=== PATIENT | male | born 1975 | race Caucasian/White ===

== ENCOUNTER → 2017-04-17 | Outpatient (CLI) | payer BC ==
[~2017-04-17] MED LIST: FLOMAX 0.4MG C0.4 MG PO; HYDROCODONE-APA1 TA1 PO; MEDROL 4MG. DOSE4 MG PO; PHENAZOPYRIDIN200 M1 PO; SEPTRA DS 800 M1 TAB PO; SMZ-TMP 800 MG-1 TAB PO; ZOFRAN ODT4 MG PO
--- NOTE | 2017-04-17 15:43 | RADIOLOGY REPORT PS360 ---
CT ABD PELVIS W/O CONTRAST CLINICAL INDICATION: RT FLANK PAIN ORDERING PHYSICIAN: Hernando Ac MD PATIENT AGE: 41 years COMPARISON: 08/08/2015. TECHNIQUE: Axial images obtained without contrast. Sagittal and coronal reformatted images also generated and reviewed FINDINGS: Lung bases are clear. The liver, gallbladder, pancreas, spleen, and adrenal glands are unremarkable. There is a 7 x 5 millimeter stone in the right renal pelvis near but not struck in the ureteropelvic junction. The right ureter somewhat dilated throughout its course but not quite as prominent as on 08/08/2015 there is some haziness of the fat in the right perinephric region around the renal pelvis and proximal ureter. Urinary tract infection, recent or chronic obstruction is a consideration. The left kidney has an unremarkable appearance. Unremarkable appendix. No evidence of diverticulitis or other focal inflammatory change. Prostate is somewhat prominent nearly 5 cm. No acute bony anomalies. IMPRESSION: 1. Right nephrolithiasis with mild prominence of the right renal pelvicalyceal system and proximal ureter. A 7 mm stone is present in the right renal pelvis but does not appear to be causing obstruction at this time. 2. Mild haziness of the right perirenal and proximal periureteral fat which could be related to underlying urinary tract infection or recently relieved obstruction. Please correlate with clinical findings.
== END ==
LOC: RAD 07:59
DX: R10.9 Unspecified abdominal pain (principal)